=== PATIENT | male | born 2000 | race African-American/Black ===

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

== ENCOUNTER 2018-01-29 11:30 | Emergency (ER) | payer SELFPAY ==
[2018-01-29] MEDS ORDERED: Midazolam* 1 MG/ML 5 ML VIAL (5 MG) ONE (11:34)
--- NOTE | 2018-01-29 11:34 | ED ---
Upper Extremity Pain - HPI Summary HPI Summary: The pt is a 17 y/o male [facility] c/o R shoulder pain s/p a dislocation. He denies any trauma. He reports a hx of R shoulder dislocation. The pain rated 10/10 in severity is aggravated by movement. EMS administered 200 mcg Fentanyl en route. Home Medications Medication Instructions Recorded Confirmed Type NK [No Home Medications Reported] 11/20/17 01/29/18 History - History of Current Complaint Stated Complaint: RIGHT SHOULDER INJURY Hx Obtained From: Patient, EMS Onset/Duration: Atraumatic, Still Present Severity Initially: Severe Severity Currently: Severe Pain Location: Shoulder - R Character: Sharp Aggravating Factor(s): Movement Alleviating Factor(s): Nothing Related History: Similar Episode/Dx As - A R shoulder dislocation - Allergies/Home Medications Allergies/Adverse Reactions: Allergies Allergy/AdvReac Type Severity Reaction Status Date / Time No Known Allergies Allergy Verified 01/29/18 11:41 PMH/Surg Hx/FS Hx/Imm Hx Previously Healthy: No Endocrine/Hematology History: Denies: Hx Diabetes, Hx Thyroid Disease Cardiovascular History: Denies: Hx Hypertension Respiratory History: Denies: Hx Asthma, Hx Chronic Obstructive Pulmonary Disease (COPD) GI History: Denies: Hx Ulcer Musculoskeletal History: Denies: Hx Rheumatoid Arthritis, Hx Osteoporosis Neurological History: Reports: Hx Migraine - Cancer History Cancer Type, Location and Year: None reported - Surgical History Surgery Procedure, Year, and Place: None reported Infectious Disease History: Denies: Hx Clostridium Difficile, Hx Hepatitis, Hx Human Immunodeficiency Virus (HIV), Hx of Known/Suspected MRSA, Hx Shingles, Hx Tuberculosis, Hx Known/ Suspected VRE, Hx Known/Suspected VRSA, History Other Infectious Disease - Family History Known Family History: Negative: Hypertension, Diabetes - Social History Occupation: Unemployed Lives: With Family Alcohol Use: None Substance Use Type: Reports: None Smoking Status (MU): Heavy Every Day Tobacco Smoker Type: eCigarettes Review of Systems Positive: no symptoms reported Musculoskeletal: Negative - Trauma , Other - R shoulder pain, R shoulder deformity Positive: Decreased ROM All Other Systems Reviewed And Are Negative: Yes Physical Exam - Summary Physical Exam Summary: Appearance: Well appearing, no pain distress Skin: warm, dry, reflects adequate perfusion Head/face: normal Eyes: EOMI, MARYSOL ENT: normal Neck: supple, non-tender Respiratory: CTA, breath sounds present Cardiovascular: RRR, pulses symmetrical Abdomen: non-tender, soft Musculoskeletal: Deformity and tenderness of the R shoulder, Restricted range of motion of the RUE Neuro: normal, sensory motor intact, A&Ox3 Triage Information Reviewed: Yes Vital Signs On Initial Exam: Initial Vital Signs Temp 97.1 F 01/29/18 11:30 Pulse 66 01/29/18 11:30 Resp 24 01/29/18 11:30 BP 133/88 01/29/18 11:30 Pulse Ox 100 01/29/18 11:30 Vital Signs Reviewed: Yes Procedures - Joint Reduction Right Joint Reduction Site: shoulder (R) Conscious Sedation: Yes - Fentanyl and Versed used. Patient tolerated it well. No complications. Reduction Attempts: 1 Pre-Procedure NV Exam: Yes Post Joint Reduction Film: joint reduced Diagnostics - Laboratory Lab Statement: Any lab studies that have been ordered have been reviewed, and results considered in the medical decision making process. - Radiology R shoulder X-ray 1 Radiology Interpretation Completed By: Radiologist Summary of Radiographic Findings: IMPRESSION: Right shoulder dislocation. The ED physician reviewed this radiology report. R shoulder X-Ray 2 Radiology Interpretation Completed By: Radiologist Summary of Radiographic Findings: IMPRESSION: STATUS POST REDUCTION, HILL- SACHS FRACTURE.The ED physician reviewed this radiology report. Re-Evaluation - Re-Evaluation First Eval Re-Evaluation Time: 12:30 Change: Improved - I discussed the dispo plan with the pt. Course/Dx - Course Course Of Treatment: A 17 year-old M presents to the ED with a CC of R shoulder pain s/p a dislocation. He denies any trauma. A physical exam revealed deformity and tenderness of the R shoulder, and restricted range of motion of the RUE. The first R shoulder X-ray revealed a right shoulder dislocation. I performed a R shoulder reduction with traction and counter traction. Fentanyl and Versed sedatives were used. A second R shoulder X-ray post-reduction reveals a Hill- sachs fracture. The patient tolerated it well. There were no complications. Patient will be discharged with a final Dx of R shoulder dislocation. Pt is agreeable with this plan. Allergies noted. - Diagnoses Differential Diagnosis/HQI/PQRI: Positive: Arthritis, Contusion, Fracture (Open) , Other - dislocation Provider Diagnoses: Dislocation of right shoulder joint - Critical Care Time Critical Care Time: 30-74 min Discharge - Sign-Out/Discharge Documenting (check all that apply): Patient Departure - DC - Discharge Plan Condition: Stable Disposition: HOME Prescriptions: Ibuprofen TAB* [Motrin TAB* 600 MG] 600 mg PO Q8H PRN #15 tab MDD 3 PRN Reason: Pain Patient Education Materials: Shoulder Dislocation (ED) Referrals: [facility] [Outside] Serene Montes MD [Medical Doctor] - Additional Instructions: Follow up with PCP in 2-3 days and with the orthopedist as soon as possible. Return to the ED for any new or worsening symptoms. - Billing Disposition and Condition Condition: STABLE Disposition: Home - Attestation Statements Document Initiated by Scribe: Yes Documenting Scribe: Jennie Paul Provider For Whom Deyanira is Documenting (Include Credential): Dr. Aleksey Montalvo MD Scribe Attestation: Jennie Sánchez scribed for Dr. Aleksey Montalvo MD on 01/29/18 at 1442. Scribe Documentation Reviewed: Yes Provider Attestation: The documentation as recorded by the Jennie goss accurately reflects the service I personally performed and the decisions made by , Dr. Aleksey Montalvo MD Status of Scribe Document: Viewed
[2018-01-29] MEDS ORDERED: fentaNYL* 50 MCG/ML 2 ML VIAL (100 MCG VIAL) ONE (11:35)
[2018-01-29] MEDS ORDERED: Flumazenil* 0.1 MG/ML 5 ML MDV ONE (11:35)
[2018-01-29] MEDS ORDERED: Ketorolac INJ* 60 MG/2 ML VIAL IM ONE (13:21)
[2018-01-29] MEDS ORDERED: Ketorolac INJ* 60 MG/2 ML VIAL ONE (13:21)
[2018-01-29 13:28] VITALS: BP 108/77
[2018-01-29] MEDS ORDERED: NS 0.9% 1000 ML* 1,000 ML IV ONE (13:31)
== END 2018-01-29 13:27 | disposition home or self-care (01) ==
LOC: ED 11:30
DX: S43.004A Unspecified dislocation of right shoulder joint, initial encounter (principal); S42.291A Other displaced fracture of upper end of right humerus, initial encounter for closed fracture; F17.290 Nicotine dependence, other tobacco product, uncomplicated; X58.XXXA Exposure to other specified factors, initial encounter; Y92.9 Unspecified place or not applicable
CPT/HCPCS: 23650; 96372; 99284; J1885; J2250; J3010

== ENCOUNTER 2018-03-11 10:03 | Day surgery (SDC) | payer MEDICAID, OTHER ==
[~2018-03-11 10:03] MED LIST: Buffered Lidocaine 1% SYRIN* 1 ML/SYRINGE INTRADERM ONE; Dexamethasone IV* 4 MG/ML 1 ML (4 MG) IV SLOW PU ONE; Famotidine IV* 10 MG/ML 2 ML (20 mg) IV ONE; Lactated Ringers 1000 ML Bag* 1,000 ML IV SCH
[2018-03-11] MEDS ORDERED: ceFAZolin 2 GM PREMIX in ORs 2 GM/50 ML BAG IVPB ONE (10:14)
[2018-03-11] MEDS ORDERED: Dexamethasone IV* 4 MG/ML 1 ML (4 MG) ONE (10:14)
[2018-03-11] MEDS ORDERED: Famotidine IV* 10 MG/ML 2 ML (20 mg) ONE (10:14)
[2018-03-11] MEDS ORDERED: Buffered Lidocaine 1% SYRIN* 1 ML/SYRINGE INTRADERM ONE (10:37)
[2018-03-11] MEDS ORDERED: fentaNYL* 50 MCG/ML 2 ML VIAL (100 MCG VIAL) ONE (10:37)
[2018-03-11] MEDS ORDERED: Midazolam* 1 MG/ML 5 ML VIAL (5 MG) ONE (10:38)
[2018-03-11] MEDS ORDERED: Ropivacaine* 2 MG/ML 20 ML VIAL (0.2%) ONE (10:38)
[2018-03-11] MEDS ORDERED: Atracurium* 10 MG/ML 10 ML VIAL ONE (11:45)
[2018-03-11] MEDS ORDERED: ROPIVACAINE 5 MG/ML 30 ML BTL (0.5%) ONE (11:58)
[2018-03-11] MEDS ORDERED: Lidocaine 1%* 5 ML VIAL ONE (11:58)
[2018-03-11] MEDS ORDERED: Naloxone* 0.4 MG/ML 1 ML VIAL IV PRN (13:18)
[2018-03-11] MEDS ORDERED: Acetaminophen TAB* 325 MG PO PRN (13:18)
[2018-03-11] MEDS ORDERED: PROCHLORPERAZINE INJ 5 MG/ML 2 ML VIAL IV PRN (13:18)
[2018-03-11] MEDS ORDERED: fentaNYL* 50 MCG/ML 2 ML VIAL (100 MCG VIAL) IV PRN (13:18)
[2018-03-11] MEDS ORDERED: oxyCODONE/Acetamin 5/325 MG* TAB PO PRN (13:18)
[2018-03-11] MEDS ORDERED: DiMENhydriNATE IV* 50 MG/ML VIAL IV PUSH PRN (13:18)
[2018-03-11] MEDS ORDERED: Ketorolac INJ* 30 MG/ML 1 ML VIAL IV PRN (13:18)
[2018-03-11] MEDS ORDERED: EPHEDrine (Pressors)* 50 MG/ML VIAL ONE (13:24)
[2018-03-11] MEDS ORDERED: Propofol* 10 MG/ML 20 ML BTL ONE (13:24)
[2018-03-11] MEDS ORDERED: Phenylephrine INJ* 10 MG/ML 1 ML VIAL (10 MG) ONE (13:24)
[2018-03-11] MEDS ORDERED: Ondansetron INJ* 2 MG/ML VIAL ONE (13:51)
[2018-03-11] MEDS ORDERED: Ketorolac INJ* 30 MG/ML 1 ML VIAL ONE (14:19)
[2018-03-11 14:46] VITALS: BP 131/47
--- NOTE | 2018-03-11 23:15 | OP ---
CC: PCP (?)... DATE OF OPERATION: 03/11/18 - [facility] DATE OF : 89 SURGEON: Dr. Dylon Deshpande. MON[employer] RECOVERY SUPERVISOR: ABEL Garnica. An assistant production editor was needed for the entirety of the case to help with positioning, retraction, and was utilized throughout all portions of the case. ANESTHESIOLOGIST: Dr. David. ANESTHESIA: General interscalene block. 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 OPERATIVE PROCEDURE: Right shoulder arthroscopy with: 1. Labral repair. 2. Chondroplasty. COMPLICATIONS: None. ESTIMATED BLOOD LOSS: Minimal. IMPLANTS USED: Five Bioraptors 2.9 mm. INDICATIONS: Elieser Bustos is a 17-year-old male who has had multiple dislocations of his right shoulder. He was diagnosed with right shoulder instability with labral tear. He had some mild glenoid bone loss on the MRI and was deemed a candidate for a labral repair. After extensive discussion of risks and benefits of surgery which included, but not limited to bleeding, infection, damage to nerves; vessels; surrounding structures, wound nonhealing, persistent pain, need for further surgery, scarring, stiffness, incomplete relief of symptoms, and risks of anesthesia, he has elected to proceed. DESCRIPTION OF PROCEDURE: The patient was greeted in the preoperative area by the attending surgeon. Correct extremity was marked and consent was confirmed. He underwent preoperative interscalene block. He was brought back to the operating suite, where he was placed in the supine position on the operating table. He then underwent general anesthesia and endotracheal intubation, after which he was appropriately positioned in the left lateral decubitus position. All bony prominences were padded. He was secured with a pegboard. The right arm was draped unsterile with 10 pounds of traction. Right shoulder was prepped and draped in usual sterile fashion beginning with chlorhexidine soap, scrub, and alcohol wipe and a final prep with ChloraPrep. After appropriate surgical pause indicating side, site, procedure, and administration of antibiotics, a standard postero-lateral portal was made sharply with an 11-blade. The scope was introduced into the joint and the joint was examined. There were small areas of grade 2 changes to the glenoid. There was no obvious loose body that was present. The scope was positioned in the posterolateral portal. The joint was examined. The joint was obviously subluxed anteriorly. There was a Hill-Sachs deformity that was present. There was more bone loss than appreciated on the MRI with this anteriorly. The labrum was obviously displaced medially. The superior labrum also had tearing, which was extending along the anterior surface of the labrum. The posterior labrum had some mild fraying. Inferior recess was intact. There was synovitis. I did not appreciate any loose bodies. The rotator cuff was intact. The rest of the biceps tendon looked completely intact with no erythema. A low anterior portal was made in an outside-in fashion. An 8.5 mm cannula was placed and then a second cannula of 5 mm was placed in the superior interval. The shaver was used to debride back and do a small chondroplasty to remove the unstable flaps. There was a small evidence of loose body that was tethered to the glenoid. This was debrided back using the shaver. There were no other obvious loose bodies present. The lateral garfield was then used to help distract the joint. A 70-degree scope was used to help with visualization. The elevator was used to gently elevate the labrum. All-in- one sheath was attached to the capsule. In part, this was then elevated. The glenoid was then prepared in usual fashion with the shaver. The capsule was also rasped to allow for bony bleeding bed. Tissues appeared to have good quality. After this was done, an anchor was placed inferiorly. This is a 2.9 Bioraptor; it was drilled and placed with excellent purchase around the 5:30 position. This was passed in a horizontal mattress configuration to allow for an inferior superior capsular shift as well. The quality of the tissue was okay inferiorly. A second anchor was placed at the 4:30 position and passed in a horizontal mattress configuration. This approximated the tissue somewhat better. Next, another anchor was placed in around the 4 o'clock position next to that and passed in a simple configuration, which helped to stabilize the tissues a little bit better. A fourth anchor was placed at the 3:30 position and passed in a simple configuration and tied down, and then a last suture was placed around the 2 o'clock position to grab the anterior portion of the superior labral tear. This was then tied down. The head was found to be sitting better , although he did have some bone loss more than appreciated on the MRI, but it appeared to be more central. The drive-through sign was eliminated, Hill-Sachs was not visible, and the head was not obviously subluxed anteriorly. Final images were obtained. The wounds were copiously irrigated with sterile saline. Portals were closed with 3-0 nylon. Sterile dressings were applied. A Cryo/ Cuff and UltraSling were applied. He was awoken from anesthesia and transferred to the PACU in stable condition. POSTOPERATIVE PLAN: He will be nonweightbearing and in a sling for about 4 to 5 weeks. He will start physical therapy in about 4 weeks. He will be discharged on pain medication. DVT prophylaxis was considered, but deferred due to no previous personal or family history. [id number]/[facility] #: [id number] NORMA
== END 2018-03-11 15:05 | disposition home or self-care (01) ==
LOC: OREAST 10:03
PROVIDERS: ATTEND Orthopaedic Surgery
DX: M25.311 Other instability, right shoulder (principal); M24.011 Loose body in right shoulder; G89.18 Other acute postprocedural pain
CPT/HCPCS: J0690; J1100; J1885; J2250; J2405; J2704; J2795; J3010